=== PATIENT | female | born 1985 | race African-American/Black ===

== ENCOUNTER 2018-01-01 06:35 | Outpatient (CLI) | payer BC, OTHER ==
--- NOTE | 2018-01-01 09:09 | ULT ---
SONOGRAM OBSTETRIC LIMITED: History: Evaluate placenta. FINDINGS: Single intrauterine gestation in cephalic presentation. Amniotic fluid index 8.2. Heart motion at 130 beats/minute. Grade I placenta is anterior the lower placental margin is approximately 2 cm from the internal cervi cande os. Cervix is closed and 3.5 cm. IMPRESSION: No evidence of placenta previa. POS: [facility]
== END 2018-01-01 06:36 | disposition home or self-care (01) ==
LOC: BICULT 06:35
PROVIDERS: ATTEND Family Medicine
DX: O09.893 Supervision of other high risk pregnancies, third trimester (principal)
CPT/HCPCS: 76816